=== PATIENT | male | born 1980 | race Caucasian/White ===

== ENCOUNTER → 2017-10-29 | Day surgery (SDC) | payer OTHER ==
[~2017-10-29] VITALS: Ht 172.7 cm; Wt 77.1 kg
[~2017-10-29] MED LIST: LISINOPRIL10 M1 PO
--- NOTE | 2017-10-29 09:26 | Operative Report ---
Operative/Inv Procedure Report Surgery Date: 10/29/17 Name of Procedure: Closed reduction nasal fracture Pre-Operative Diagnosis: Nasal fracture, with displacement Post-Operative Diagnosis: Same Estimated Blood Loss: scant Surgeon/Manager Mass: Elsa Flaherty MD Anesthesia: laryngeal mask airway Specimens: None Complications: None Condition: Stable on leaving the OR Operative Indication: Nasal fracture with bony displacement and nasal deformity Operative/Procedure Note Note: The patient was brought to the operating room. Placed on the operating room table in supine position. At first timeout was performed identifying the patient, ID numbers and procedure to be performed. Next general LMA anesthesia was induced. LMA tube was secured with tape over the left oral commissure. Operating room table was left in the midline with head toward the anesthesia. At first vasoconstriction was carried by application of Afrin spray on cottonoid pledgets. Next patient's face was draped in a sterile fashion. Cottonoid pledgets were removed. Examination of the nose revealed depressed nasal wall on the right with elevation on the left with resulting nasal dorsum deformity and the displacement to the left. Septum was deviated to the left with obstruction of left nasal fossa. This appeared to be chronic and not brought on by recent nasal injury. Layton elevator was inserted into the nasal fossa with elevation of the right lateral nasal wall bone and shifting it over to the right with reduction of the fracture. Reduction of nasal dorsum resulted with the nasal dorsum to return to the midline. There was no residual deformity. A brisk nosebleed was encountered which resolved by application of cotton pledgets saturated with Afrin. Mastisol was applied to the nasal dorsum followed by placement of cloth tape. Next plaster splint was shaped into the size of the nasal dorsum soaked in warm water and applied to the nasal dorsum. It was held in place until plaster firmed up and became molded with underlying tape. Reexamination of the nasal fossa revealed no additional bleeding. Surgery was completed. The patient was reawakened, extubated and taken to the recovery room in good condition. There were no complications. Estimated blood was was scant. Findings: Depressed nasal wall on the right and elevated on the left with nasal dorsum deviation to the left Discharge Disposition: PACU
== END ==
LOC: STS 09:00
DX: S02.2XXA Fracture of nasal bones, initial encounter for closed fracture (principal); Y08.89XA Assault by other specified means, initial encounter
CPT/HCPCS: 93005; 93010; J0131; J0690; J1100; J2250; J2405